=== PATIENT | male | born 1960 | race Caucasian/White ===

== ENCOUNTER 2021-06-19 11:07 | Emergency (ER) | payer BC ==
[2021-06-19] MEDS ORDERED: Ketorolac Tromethamine 30 MG/ML VIAL ONE (12:44)
== END 2021-06-19 12:57 | disposition home or self-care (01) ==
LOC: CSHERS 11:07
DX: S83.92XA Sprain of unspecified site of left knee, initial encounter (principal); S43.402A Unspecified sprain of left shoulder joint, initial encounter; W10.9XXA Fall (on) (from) unspecified stairs and steps, initial encounter; I10 Essential (primary) hypertension; E11.9 Type 2 diabetes mellitus without complications; E78.5 Hyperlipidemia, unspecified; E78.00 Pure hypercholesterolemia, unspecified; F17.210 Nicotine dependence, cigarettes, uncomplicated
CPT/HCPCS: 96372; J1885

== ENCOUNTER 2024-04-15 09:05 | Outpatient (CLI) | payer OTHER | END 2024-04-15 09:06 | disposition home or self-care (01) | LOC: CSHCT 09:05 | PROVIDERS: ATTEND Family Medicine Sports Medicine | DX: Z12.2 Encounter for screening for malignant neoplasm of respiratory organs (principal); F17.210 Nicotine dependence, cigarettes, uncomplicated; I25.10 Atherosclerotic heart disease of native coronary artery without angina pectoris; I25.84 Coronary atherosclerosis due to calcified coronary lesion | CPT/HCPCS: 71271 ==

== ENCOUNTER 2024-05-31 10:08 | Emergency (ER) | payer BC, MEDICARE ==
[2024-05-31] MEDS ORDERED: HYDROcodone/Acetaminophen 5/325 mg Tablet ONE (13:37)
== END 2024-05-31 13:30 | disposition home or self-care (01) ==
LOC: CSHERS 10:08
DX: S93.491A Sprain of other ligament of right ankle, initial encounter (principal); E11.9 Type 2 diabetes mellitus without complications; I10 Essential (primary) hypertension; F17.210 Nicotine dependence, cigarettes, uncomplicated; W10.1XXA Fall (on)(from) sidewalk curb, initial encounter
CPT/HCPCS: 99283